=== PATIENT | female | born 1980 | race Caucasian/White ===

== ENCOUNTER 2016-06-06 21:06 | Observation (INO) | payer MEDICAID, OTHER ==
[2016-06-06] MEDS ORDERED: NS 1,000 ML IV ONE (21:48)
[2016-06-06 21:58] LABS: % IMMATURE GRANULYOCYTES 0.2 % (0.0-1.1); ABSOLUTE IMMATURE GRANULOCYTES 0.02 10^3/uL (0.00-0.10); ADD DIFF? NO; ADD MORPH? NO; ADD SCAN? NO; ATYPICAL LYMPHOCYTE FLAG 20 (0-99); FRAGMENT RBC FLAG 0 (0-99); HEMATOCRIT 42.9 % (38.0-47.0); HEMOGLOBIN 14.7 g/dL (12.6-16.3); LEFT SHIFT FLG 0 (0-99); LIPEMIA HEMOLYSIS FLAG 90 (0-99); MEAN CELL HEMOGLOBIN 31.3 pg (27.9-34.1); MEAN CELL HEMOGLOBIN CONCENTR. 34.3 g/dL (32.4-36.7); MEAN CELL VOLUME 91.5 fL (81.5-99.8); MEAN PLATELET VOLUME 9.5 fL (8.7-11.7); PLATELET CLUMPS FLAG 70 (0-99); PLATELET COUNT 292 10^3/uL (150-400); RED BLOOD CELL COUNT 4.69 10^6/uL (4.18-5.33); RED CELL DISTRIBUTION WIDTH 13.2 % (11.5-15.2)
[2016-06-06] MEDS ORDERED: ONDANSETRON 4 MG/2 ML VIAL IVP ONE (22:11)
--- NOTE | 2016-06-06 22:11 | EDPHY ---
General Narrative: CHIEF COMPLAINT: Abdominal pain, vomiting HISTORY OF PRESENT ILLNESS: Sudden onset of distension, pain and vomiting this morning. It is severe pain. It is worse with any kind of palpation or movement. Constipated for 4 days. No diarrhea. No trauma or injury. Remote history of cholecystectomy. She has been vomiting all day with bilious appearing vomitus. She has no chest pain or shortness of breath. Questionable fever. No headache. No dizziness or syncope. No vaginal bleeding or discharge. No pelvic pain. No flank pain. No urinary complaints. No other associated complaints or modifying factors. PREVIOUS ABDOMINAL SURGERIES/DIAGNOSES: Cholecystectomy NPO: All day REVIEW OF SYSTEMS: Ten systems reviewed and are negative unless otherwise noted in the HPI EXAMINATION: General Appearance: Alert, no distress, crying Head: normocephalic, atraumatic Eyes: Pupils equal and round, no conjunctival pallor or injection ENT, Mouth: Mucous membranes moist. Uvula midline. No erythema edema. Neck: Normal inspection, supple, non-tender Respiratory: Lungs are clear to auscultation. No wheezing, rhonchi or crackles. Cardiovascular: Regular rate and rhythm. No murmur. Gastrointestinal: Abdomen is soft. Tympanic in all quads. Decreased bowel sounds in all quadrants. Moderate tenderness to palpation. No guarding noted. No flank tenderness. No rigidity. Neurological: A&O, nonfocal Skin: Warm and dry, no rash Extremities: Nontender, no pedal edema Psychiatric: Mood and affect normal DIFFERENTIAL DIAGNOSES: Including but not limited to small-bowel obstruction, constipation, obstipation , enteritis, colitis, cystitis, renal colic, endometriosis MDM: 9:50 p.m. Acute abdominal pain with tympany and diminished bowel sounds in all quadrants. She is guarding on examination. She is obviously uncomfortable. I did order pain medication, nausea medication and IV fluids. Laboratory studies and CT scan are also pending. 10:50 p.m. Patient has small bowel movement improved. She still abdominal pain. There is no white count or fever. We are having difficulty obtaining a large enough caliber IV to obtain a CT scan. In the interim, her liver enzymes have returned with abnormalities of the AST, ALT and conjugated bilirubin. I have ordered ultrasound of the abdomen to evaluate the liver for LFT abnormality. Still pursuing CT scan of the abdomen and pelvis once IV access is obtained. 11:05 p.m. Contacted by radiologist Dr. Parsons. We discussed the case. He recommends that given the clinical scenario that we pursue with CT scan abdomen pelvis with contrast 1st to determine if there is any need for an ultrasound of the right upper quadrant given that she is status post cholecystectomy. 11:30 p.m. There has been extensive difficulty obtaining a large enough IV to inject through. We have elected to proceed with CT scan of the abdomen and pelvis without IV contrast if this final attempt is unsuccessful. 12:[address] scan of the abdomen and pelvis was discussed with Dr. Parsons. There is some rectosigmoid colitis with moderate constipation. Patient is still in a significant amount of pain despite IV pain medication. I feel that she is best served with admission to determine the etiology of this colitis as it does not appear to be infective by history and laboratory studies. She would benefit from admission for pain control as well as GI consult to discuss the possibility of colonoscopy. She is comfortable with this plan. I have discussed the case with the hospitalist, and she will admit the patient to [facility] for further care. I have also ordered a hepatitis panel to analyze the transaminitis. Dr. Nelson will follow up on the hepatitis panel and lactic acid. ED Precautions: Worsening pain. Fever. Bloody stools. Bloody emesis. Constipation or diarrhea. SUPERVISION: This patient was independently evaluated without direct examination by the attending physician. Case was discussed with attending physician. - History Smoking Status: Never smoked - Objective Vital Signs: Initial Vital Signs Temperature (C) 98.2 F 06/06/16 21:34 Heart Rate 85 06/06/16 21:34 Respiratory Rate 18 06/06/16 21:34 Blood Pressure 110/75 06/06/16 21:34 O2 Sat (%) 99 06/06/16 21:34 O2 Delivery Mode Room Air Allergies/Adverse Reactions: No Known Allergies Allergy (Unverified 06/06/16 21:33) Home Medications: Medication Instructions Recorded Ondansetron Odt [Zofran Odt 4 mg 4 mg PO Q4 PRN #20 tab 11/23/14 (RX)] Cymbalta 06/06/16 Zanaflex 06/06/16 traMADol 06/06/16 Laboratory Results: Laboratory Results 06/06/16 21:46 06/06/16 21:46 06/06/16 06/06/16 06/06/16 22:10 21:46 21:46 WBC RBC Hgb Hct MCV MCH MCHC RDW Plt Count MPV Neut % (Auto) Lymph % (Auto) [place] % (Auto) Eos % (Auto) Baso % (Auto) Nucleat RBC Rel Count Absolute Neuts (auto) Absolute Lymphs (auto) Absolute Monos (auto) Absolute Eos (auto) Absolute Basos (auto) Absolute Nucleated RBC Immature Gran % Immature Gran # PT 12.0 SEC SEC (12.0-15.0) INR 0.90 (0.83-1.16) APTT 28.7 SEC SEC (23.0-38.0) Sodium 137 mEq/L mEq/L (134-144) Potassium 4.3 mEq/L mEq/L (3.5-5.2) Chloride 103 mEq/L mEq/L (97-110) Carbon Dioxide 22 mEq/l mEq/l (22-31) Anion Gap 12 mEq/L mEq/L (8-16) BUN 13 mg/dL mg/dL (7-23) Creatinine 0.6 mg/dL mg/dL (0.6-1.0) Estimated GFR > 60 Glucose 115 mg/dL H mg/dL (70-100) Calcium 9.4 mg/dL mg/dL (8.5-10.4) Total Bilirubin 0.8 mg/dL mg/dL (0.1-1.4) Conjugated Bilirubin 0.6 mg/dL H mg/dL (0.0-0.5) Unconjugated Bilirubin 0.2 mg/dL mg/dL (0.0-1.1) AST 305 IU/L H IU/L (14-46) ALT 383 IU/L H IU/L (9-52) Alkaline Phosphatase 107 IU/L IU/L (38-126) Total Protein 7.5 g/dL g/dL (6.3-8.2) Albumin 4.4 g/dL g/dL (3.5-5.0) Lipase 23.0 IU/L IU/L (23-300) Beta HCG, Qual NEGATIVE 06/06/16 21:46 WBC 8.01 10^3/uL 10^3/uL (3.80-9.50) RBC 4.69 10^6/uL 10^6/uL (4.18-5.33) Hgb 14.7 g/dL g/dL (12.6-16.3) Hct 42.9 % % (38.0-47.0) MCV 91.5 fL fL (81.5-99.8) MCH 31.3 pg pg (27.9-34.1) MCHC 34.3 g/dL g/dL (32.4-36.7) RDW 13.2 % % (11.5-15.2) Plt Count 292 10^3/uL 10^3/uL (150-400) MPV 9.5 fL fL (8.7-11.7) Neut % (Auto) 82.5 % H % (39.3-74.2) Lymph % (Auto) 11.6 % L % (15.0-45.0) [place] % (Auto) 5.2 % % (4.5-13.0) Eos % (Auto) 0.1 % L % (0.6-7.6) Baso % (Auto) 0.4 % % (0.3-1.7) Nucleat RBC Rel Count 0.0 % % (0.0-0.2) Absolute Neuts (auto) 6.60 10^3/uL H 10^3/uL (1.70-6.50) Absolute Lymphs (auto) 0.93 10^3/uL L 10^3/uL (1.00-3.00) Absolute Monos (auto) 0.42 10^3/uL 10^3/uL (0.30-0.80) Absolute Eos (auto) 0.01 10^3/uL L 10^3/uL (0.03-0.40) Absolute Basos (auto) 0.03 10^3/uL 10^3/uL (0.02-0.10) Absolute Nucleated RBC 0.00 10^3/uL 10^3/uL (0-0.01) Immature Gran % 0.2 % % (0.0-1.1) Immature Gran # 0.02 10^3/uL 10^3/uL (0.00-0.10) PT INR APTT Sodium Potassium Chloride Carbon Dioxide Anion Gap BUN Creatinine Estimated GFR Glucose Calcium Total Bilirubin Conjugated Bilirubin Unconjugated Bilirubin AST ALT Alkaline Phosphatase Total Protein Albumin Lipase Beta HCG, Qual Medications Given: Discontinued Medications Sodium Chloride (Ns) 1,000 mls @ 0 mls/hr IV ONCE ONE PRN Reason: Wide Open Stop: 06/06/16 21:49 Last Admin: 06/06/16 22:22 Dose: 1,000 mls Morphine Sulfate (Morphine) 6 mg IVP EDNOW ONE Stop: 06/06/16 22:12 Last Admin: 06/06/16 22:22 Dose: 6 mg Ondansetron HCl (Zofran) 4 mg IVP EDNOW ONE Stop: 06/06/16 22:12 Last Admin: 06/06/16 22:22 Dose: Not Given Promethazine HCl (Phenergan Rectal) 25 mg MS EDNOW ONE Stop: 06/06/16 22:24 Last Admin: 06/06/16 22:24 Dose: 25 mg Departure - Departure Disposition: [facility] Acute Clinical Impression: Colitis, Acute abdominal pain Constipation Qualifiers: Constipation type: unspecified constipation type Qualified Code(s): K59.00 - Constipation, unspecified Condition: Good Referrals: MANDI WINSTON [Other] - As per Instructions
[2016-06-06] MEDS ORDERED: PROMETHAZINE HCL 25 MG SUPPR PR ONE ×2 (22:15→22:23)
[2016-06-06 22:20] LABS: ALBUMIN 4.4 g/dL (3.5-5.0); ALKALINE PHOSPHATASE 107 IU/L (38-126); ANION GAP 12 mEq/L (8-16); ASPARTATE AMINOTRANSFERASE 305 IU/L (14-46); CALCIUM 9.4 mg/dL (8.5-10.4); CARBON DIOXIDE 22 mEq/l (22-31); CHLORIDE 103 mEq/L (97-110); CREATININE 0.6 mg/dL (0.6-1.0); GLOMERULAR FILTRATION RATE > 60; GLUCOSE 115 mg/dL (70-100); POTASSIUM 4.3 mEq/L (3.5-5.2); SODIUM 137 mEq/L (134-144); TOTAL PROTEIN 7.5 g/dL (6.3-8.2)
[2016-06-06] MEDS ORDERED: IOPAMIDOL (ISOVUE-300) 100 ML BTL IV ONE (22:20)
[2016-06-06 22:21] LABS: ALANINE AMINOTRANSFERASE 383 IU/L (9-52); BILIRUBIN,TOTAL 0.8 mg/dL (0.1-1.4); BILIRUBIN-CONJUGATED 0.6 mg/dL (0.0-0.5); BILIRUBIN-UNCONJUGATED 0.2 mg/dL (0.0-1.1)
[2016-06-06 22:31] LABS: INR 0.9 (0.83-1.16)
[2016-06-06 22:32] LABS: APTT 28.7 SEC (23.0-38.0)
[2016-06-07] MEDS ORDERED: HYDROmorphONE/DILAUDID 1 MG/ML SYR ONE (00:04)
[2016-06-07] MEDS ORDERED: HYDROmorphONE/DILAUDID 1 MG/ML SYR IVP ONE (00:04)
[2016-06-07] MEDS ORDERED: MAGNESIUM HYDROXIDE 30 ML UDCUP PO PRN (01:22)
[2016-06-07] MEDS ORDERED: BISACODYL 10 MG SUPP PR PRN (01:22)
[2016-06-07] MEDS ORDERED: POLYETHYLENE GLYCOL 3350 17 GM PKT PO PRN (01:22)
[2016-06-07] MEDS ORDERED: NS 1,000 ML IV SCH (01:30)
--- NOTE | 2016-06-07 01:39 | PDGENHP ---
History and Physical - Chief Complaint abdominal pain - History of Present Illness Patient is a 36-year-old female with history of degenerative disc disease of her spine, with chronic pain syndrome presents to the ED with complaint of acute onset abdominal pain, nausea and vomiting. Patient states she woke up this morning feeling abdominal distention and bloating, associated with mild cramping abdominal pain. Throughout the course of the day her abdominal pain worsened and by a 2:00 p.m. she began having nausea and vomiting. Between 2:00 p.m. and 930 she vomited greater than 6 times, nonbilious nonbloody and her abdominal pain continued to intensify. She felt the need to have a bowel movement at 1 point during the evening, but was unable to pass any stool. She states her last full BM was about 4 days ago and was normal in color and consistency. Given the progressive worsening of her symptoms, she decided to come to the ED for further evaluation. Patient denies a history of chronic constipation. She reports some chills associated with vomiting, but denies any subjective fevers, coughing, chest pain , shortness of breath, headache, dizziness or dysuria. For her chronic pain, she takes tramadol, cymbalta and these meds have not changed recently. On arrival to the ED patient is afebrile hemodynamically stable, although and moderate to significant amount of abdominal pain. CT of the abdomen was obtained without IV contrast, due to difficult IV access, which revealed evidence of focal sigmoid colitis. Labs did not show significant white count, BMP was within normal limits, but LFT showed transaminitis. Symptoms were not able to be controlled in the ED, so she was admitted to the hospitalist service for further management. Of note while in the ED, she did have a small BM with some improvement in her abdominal pain. History Information - Allergies/Home Medication List Allergies/Adverse Reactions: No Known Allergies Allergy (Unverified 06/06/16 21:33) Home Medications: Cymbalta 06/06/16 [Last Taken Unknown] Zanaflex 06/06/16 [Last Taken Unknown] traMADol 06/06/16 [Last Taken Unknown] I have personally reviewed and updated: family history, medical history, social history, surgical history - Past Medical History Additional medical history: degenerative disc disease with chronic pain - Surgical History Reports: cholecystectomy - Family History Additional family history: M: HTN, RA. F: bipolar disorder - Social History Smoking Status: Never smoked Alcohol Use: Rarely Drug Use: None Additional social history: Patient works as a travelling nurse. Originally from [place], now lives in [place] alone. Review of Systems ROS: 10pt was reviewed & negative except for what was stated in HPI & below Physical Exam Temp Pulse Resp BP Pulse Ox 37.0 C 85 16 124/78 H 96 06/07/16 01:13 06/07/16 01:13 06/07/16 01:13 06/07/16 01:13 06/07/16 01:13 Constitutional: no apparent distress, appears nourished, uncomfortable Eyes: PERRL, anicteric sclera, EOMI Ears, Nose, Mouth, Throat: moist mucous membranes, hearing normal, ears appear normal, no oral mucosal ulcers Cardiovascular: regular rate and rhythym, no murmur, rub, or gallop, pulses symmetric bilaterally, No JVD, No edema Peripheral Pulses: 2+: dorsalis-pedis (R), dorsalis-pedis (L) Respiratory: no respiratory distress, no rales or rhonchi, clear to auscultation Gastrointestinal: no palpable masses, other (hypoactive bowel sounds, soft, tender to palpation in RLQ/RUQ), No rebound Genitourinary: no bladder fullness, no bladder tenderness Skin: warm, normal color, no rashes or abrasions, no fluctuance, no induration, No mottled Musculoskeletal: full muscle strength, no muscle tenderness, normal joint ROM, no joint effusions Neurologic: AAOx3, sensation intact bilaterally, CN II-XII Intact, No weakness, No numbness Psychiatric: interacting appropriately, not anxious, not encephalopathic, thought process linear Lab Data & Imaging Review 06/06/16 21:46 06/06/16 21:46 WBC 8.01 10^3/uL (3.80-9.50) 06/06/16 21:46 RBC 4.69 10^6/uL (4.18-5.33) 06/06/16 21:46 Hgb 14.7 g/dL (12.6-16.3) 06/06/16 21:46 Hct 42.9 % (38.0-47.0) 06/06/16 21:46 MCV 91.5 fL (81.5-99.8) 06/06/16 21:46 MCH 31.3 pg (27.9-34.1) 06/06/16 21:46 MCHC 34.3 g/dL (32.4-36.7) 06/06/16 21:46 RDW 13.2 % (11.5-15.2) 06/06/16 21:46 Plt Count 292 10^3/uL (150-400) 06/06/16 21:46 MPV 9.5 fL (8.7-11.7) 06/06/16 21:46 Neut % (Auto) 82.5 % (39.3-74.2) H 06/06/16 21:46 Lymph % (Auto) 11.6 % (15.0-45.0) L 06/06/16 21:46 [place] % (Auto) 5.2 % (4.5-13.0) 06/06/16 21:46 Eos % (Auto) 0.1 % (0.6-7.6) L 06/06/16 21:46 Baso % (Auto) 0.4 % (0.3-1.7) 06/06/16 21:46 Nucleat RBC Rel Count 0.0 % (0.0-0.2) 06/06/16 21:46 Absolute Neuts (auto) 6.60 10^3/uL (1.70-6.50) H 06/06/16 21:46 Absolute Lymphs (auto) 0.93 10^3/uL (1.00-3.00) L 06/06/16 21:46 Absolute Monos (auto) 0.42 10^3/uL (0.30-0.80) 06/06/16 21:46 Absolute Eos (auto) 0.01 10^3/uL (0.03-0.40) L 06/06/16 21:46 Absolute Basos (auto) 0.03 10^3/uL (0.02-0.10) 06/06/16 21:46 Absolute Nucleated RBC 0.00 10^3/uL (0-0.01) 06/06/16 21:46 Immature Gran % 0.2 % (0.0-1.1) 06/06/16 21:46 Immature Gran # 0.02 10^3/uL (0.00-0.10) 06/06/16 21:46 PT 12.0 SEC (12.0-15.0) 06/06/16 22:10 INR 0.90 (0.83-1.16) 06/06/16 22:10 APTT 28.7 SEC (23.0-38.0) 06/06/16 22:10 VBG Lactic Acid 0.9 mmol/L (0.7-2.1) 06/07/16 00:20 Sodium 137 mEq/L (134-144) 06/06/16 21:46 Potassium 4.3 mEq/L (3.5-5.2) 06/06/16 21:46 Chloride 103 mEq/L (97-110) 06/06/16 21:46 Carbon Dioxide 22 mEq/l (22-31) 06/06/16 21:46 Anion Gap 12 mEq/L (8-16) 06/06/16 21:46 BUN 13 mg/dL (7-23) 06/06/16 21:46 Creatinine 0.6 mg/dL (0.6-1.0) 06/06/16 21:46 Estimated GFR > 60 06/06/16 21:46 Glucose 115 mg/dL (70-100) H 06/06/16 21:46 Calcium 9.4 mg/dL (8.5-10.4) 06/06/16 21:46 Total Bilirubin 0.8 mg/dL (0.1-1.4) 06/06/16 21:46 Conjugated Bilirubin 0.6 mg/dL (0.0-0.5) H 06/06/16 21:46 Unconjugated Bilirubin 0.2 mg/dL (0.0-1.1) 06/06/16 21:46 AST 305 IU/L (14-46) H 06/06/16 21:46 ALT 383 IU/L (9-52) H 06/06/16 21:46 Alkaline Phosphatase 107 IU/L (38-126) 06/06/16 21:46 Total Protein 7.5 g/dL (6.3-8.2) 06/06/16 21:46 Albumin 4.4 g/dL (3.5-5.0) 06/06/16 21:46 Lipase 23.0 IU/L (23-300) 06/06/16 21:46 Beta HCG, Qual NEGATIVE 06/06/16 21:46 Visualized and Interpreted imaging results: Yes Interpretation: CT abd/pelvis: proximal and distal sigmoid colitis with moderate constipation Assessment & Plan Assessment: Patient is a 36/F with history of osteoarthritis of the spine with chronic pain who presents to the ED with four days of constipation and acute onset abdominal pain nausea and vomiting today. Plan: # acute abdominal pain CT shows 2 separate foci of colitis of sigmoid colon, as well as moderate constipation. Given lack of fever, leukocytosis, I do not suspect an infectious etiology requiring antibiotics at this time. CT also does not show evidence of appendicitis (although suboptimal given lack of contrast) or air tester pathology, so these etiologies of pain are less likely. B-HCG is neg. Colitis may be related to moderate constipation vs undiagnosed inflammatory bowel disease. Will treat constipation with aggressive bowel regimen, check ESR/CRP and cont pain management. Will consider GI consult if symptoms do not improve. # transaminitis Etiology is unclear at this time, could be related to her duloxetine vs infectious. 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 Will check acute hepatitis panel and trend. Although CT shows normal liver, will consider US RUQ to further evaluate biliary tree if LFTs cont to increase. # constipation Last BM was 4 days ago. Will initiate senna/colace and provide bisacodyl supp, miralax prn. # chronic pain, degenerative disc disease Stable, no red flag symptoms. Will hold cymbalta and cont other pain meds. # dispo: admit under observation status # gen: clear liquid diet DVT ppx: low risk Full code
[2016-06-07] MEDS: HYDROmorphONE/DILAUDID 1 MG/ML SYR IVP PRN ×3 (01:48→11:15)
[2016-06-07] MEDS: ONDANSETRON 4 MG/2 ML VIAL IVP PRN ×2 (01:48→06:20)
[2016-06-07 02:25] LABS: COLOR YELLOW; LEUKOCYTE ESTERASE,URINE NEGATIVE (NEGATIVE); NITRITE,URINE NEGATIVE (NEGATIVE)
[2016-06-07 05:52] LABS: % IMMATURE GRANULYOCYTES 0.4 % (0.0-1.1); ABSOLUTE IMMATURE GRANULOCYTES 0.02 10^3/uL (0.00-0.10); ADD DIFF? NO; ADD MORPH? NO; ADD SCAN? NO; ATYPICAL LYMPHOCYTE FLAG 20 (0-99); FRAGMENT RBC FLAG 0 (0-99); HEMATOCRIT 34.2 % (38.0-47.0); HEMOGLOBIN 11.4 g/dL (12.6-16.3); LEFT SHIFT FLG 0 (0-99); LIPEMIA HEMOLYSIS FLAG 80 (0-99); MEAN CELL HEMOGLOBIN 31.5 pg (27.9-34.1); MEAN CELL HEMOGLOBIN CONCENTR. 33.3 g/dL (32.4-36.7); MEAN CELL VOLUME 94.5 fL (81.5-99.8); MEAN PLATELET VOLUME 9.6 fL (8.7-11.7); PLATELET CLUMPS FLAG 0 (0-99); PLATELET COUNT 209 10^3/uL (150-400); RED BLOOD CELL COUNT 3.62 10^6/uL (4.18-5.33); RED CELL DISTRIBUTION WIDTH 13.3 % (11.5-15.2)
[2016-06-07 06:17] LABS: ALANINE AMINOTRANSFERASE 256 IU/L (9-52); ALBUMIN 2.7 g/dL (3.5-5.0); ALKALINE PHOSPHATASE 63 IU/L (38-126); ANION GAP 3 mEq/L (8-16); ASPARTATE AMINOTRANSFERASE 172 IU/L (14-46); BILIRUBIN,TOTAL 0.5 mg/dL (0.1-1.4); C-REACTIVE PROTEIN 18.7 mg/L (<10.0); CALCIUM 7.5 mg/dL (8.5-10.4); CARBON DIOXIDE 24 mEq/l (22-31); CHLORIDE 110 mEq/L (97-110); CREATININE 0.5 mg/dL (0.6-1.0); GLOMERULAR FILTRATION RATE > 60; GLUCOSE 88 mg/dL (70-100); POTASSIUM 4.1 mEq/L (3.5-5.2); SODIUM 137 mEq/L (134-144); TOTAL PROTEIN 4.9 g/dL (6.3-8.2)
[2016-06-07 06:45] LABS: SEDIMENTATION RATE 9 MM/HR (0-20)
[2016-06-07 07:32] LABS: % IMMATURE GRANULYOCYTES 0.4 % (0.0-1.1); ABSOLUTE IMMATURE GRANULOCYTES 0.02 10^3/uL (0.00-0.10); ADD DIFF? NO; ADD MORPH? NO; ADD SCAN? NO; ATYPICAL LYMPHOCYTE FLAG 10 (0-99); FRAGMENT RBC FLAG 0 (0-99); HEMATOCRIT 34.8 % (38.0-47.0); HEMOGLOBIN 11.9 g/dL (12.6-16.3); LEFT SHIFT FLG 0 (0-99); LIPEMIA HEMOLYSIS FLAG 90 (0-99); MEAN CELL HEMOGLOBIN 32.2 pg (27.9-34.1); MEAN CELL HEMOGLOBIN CONCENTR. 34.2 g/dL (32.4-36.7); MEAN CELL VOLUME 94.3 fL (81.5-99.8); MEAN PLATELET VOLUME 9.8 fL (8.7-11.7); PLATELET CLUMPS FLAG 0 (0-99); PLATELET COUNT 193 10^3/uL (150-400); RED BLOOD CELL COUNT 3.69 10^6/uL (4.18-5.33); RED CELL DISTRIBUTION WIDTH 13.4 % (11.5-15.2)
[2016-06-07 07:45] VITALS: BP 116/78; PULSE 95; RESP 18; TEMP 98.5; O2SAT 95
[2016-06-07 07:58] LABS: ALANINE AMINOTRANSFERASE 261 IU/L (9-52); ALKALINE PHOSPHATASE 61 IU/L (38-126); ASPARTATE AMINOTRANSFERASE 172 IU/L (14-46); BILIRUBIN,TOTAL 0.6 mg/dL (0.1-1.4); BILIRUBIN-CONJUGATED 0.3 mg/dL (0.0-0.5); BILIRUBIN-UNCONJUGATED 0.3 mg/dL (0.0-1.1); CALCIUM 7.8 mg/dL (8.5-10.4); CARBON DIOXIDE 25 mEq/l (22-31); CHLORIDE 106 mEq/L (97-110); CREATININE 0.5 mg/dL (0.6-1.0); GLOMERULAR FILTRATION RATE > 60; GLUCOSE 111 mg/dL (70-100); SODIUM 137 mEq/L (134-144); TOTAL PROTEIN 5.2 g/dL (6.3-8.2)
[2016-06-07 08:01] LABS: ANION GAP 6 mEq/L (8-16)
[2016-06-07] MEDS ORDERED: SENNOSIDES/DOCUSATE SODIUM TAB PO SCH (09:00)
[2016-06-07] MEDS ORDERED: MAGNESIUM CITRATE 300 ML BOTTLE PO PRN (09:34)
--- NOTE | 2016-06-07 09:37 | HOSPPROG ---
Hospitalist Progress Note Assessment/Plan: #Acute abd pain: suspect constipation. No e/o infection; afebrile, no leukocytosis. Hx not consistent with IBD. Aggressive bowel regimen. Further eval with U/S #Transaminitis: may be 2/2 above vs. Zanaflex, Duloxetine. Holding both. Decreased Tramadol dose to q12 #Normocytic anemia: no active bleeding Objective: Vital Signs Temp Pulse Resp BP Pulse Ox 36.9 C 95 18 116/78 95 06/07/16 07:43 06/07/16 07:43 06/07/16 07:43 06/07/16 07:43 06/07/16 07:43 Laboratory Results 06/07/16 07:25 06/07/16 07:25 06/06/16 06/07/16 06/08/16 05:59 05:59 05:59 Intake Total 3768 Balance 3768 PT 12.0 SEC (12.0-15.0) 06/06/16 22:10 INR 0.90 (0.83-1.16) 06/06/16 22:10 - Physical Exam Constitutional: no apparent distress Eyes: PERRL Ears, Nose, Mouth, Throat: moist mucous membranes, hearing normal Cardiovascular: regular rate and rhythym, no murmur, rub, or gallop, edema ( mild edema of hands/feet) Respiratory: no respiratory distress, no rales or rhonchi Gastrointestinal: normoactive bowel sounds, tenderness (RUQ, +BS) Musculoskeletal: full muscle strength, no muscle tenderness Neurologic: AAOx3 ICD10 Worksheet Patient Problems: Problems Problem Status Onset Acute abdominal pain Acute Colitis Acute Constipation Acute
[2016-06-07] MEDS ORDERED: BISACODYL 10 MG SUPP PR ONE (14:06)
[2016-06-07] MEDS ORDERED: traMADol 50 MG TAB PO PRN ×2 (14:07→14:08)
--- NOTE | 2016-06-07 17:25 | GDS ---
[f rep st] DISCHARGE SUMMARY DISCHARGE DIAGNOSES: 1. Constipation. 2. Acute abdominal pain. 3. Acute hepatitis. 4. Normocytic anemia. HISTORY OF PRESENT ILLNESS: The patient is a 36-year-old female with chronic back pain secondary to degenerative disk disease and chronic pain syndrome, presenting to the emergency room with acute onset abdominal pain, nausea, and vomiting. She woke up the morning of admission feeling abdominal distention and bloating. The pain was mild and cramping in sensation. By 2 p.m., she began having nausea and vomiting, which was nonbilious and nonbloody. She felt that she needed to have a bowel movement but was unable to pass any stool. Last full BM was 4 days ago, normal color and consistency, no blood. Denies any joint pain or swelling. She denies any fevers, chills, or sweats. No myalgias. No shortness of breath. For her chronic pain, she takes tramadol, Cymbalta, and Zanaflex. HOSPITAL COURSE: 1. Acute abdominal pain, suspected to constipation: CT demonstrated moderate stool throughout the colon and some distal rectosigmoid inflammation, which is nonspecific colitis. There was no evidence of appendicitis. CRP mildly elevated , but negative ESR, thus low suspicion for IBD aubrey since no bloody stools, joint swelling, etc. Ultrasound of the abdomen did not show any biliary dilatation or sludge. Pain is much improved after BM today. The patient is chronically on tramadol. Recommended senna daily with plenty of fluids. 2. Transaminitis: LFTs elevated in 300s. Could possibly be secondary to Zanaflex, duloxetine. Denies recent APAP and minimal Etoh. No symptoms suggestive of viral process like EBV/CMV. I advised the patient to hold both of these medications and decreased her dose of tramadol to 50 mg q.12. Repeat LFTs 06/10/16. US showed hepatic steatosis; TAMMI and anti-smooth muscle antibody pending. She will FU with PCP, Dr. Santana at [facility]. 3. Normocytic anemia. No evidence of bleeding. DISPOSITION: Patient is stable for discharge. At time of discharge, she is tolerating p.o. and had a bowel movement. MEDICATIONS: Hold duloxetine and Zanaflex. Decrease dose of tramadol with hepatotoxicity. Repeat CMP on Saturday, June 2st, which I will follow. FOLLOWUP: With PCP, Dr. Santana, at [facility]. PENDING LABS: TAMMI and anti-smooth muscle antibody. /[id number]/MODL MTDD
== END 2016-06-07 16:59 | disposition home or self-care (01) ==
LOC: F1N 06-07 00:41
PROVIDERS: ADMIT Internal Medicine; ATTEND Internal Medicine
DX: K59.00 Constipation, unspecified (principal); K52.9 Noninfective gastroenteritis and colitis, unspecified; B17.9 Acute viral hepatitis, unspecified; D64.9 Anemia, unspecified; M53.80 Other specified dorsopathies, site unspecified
CPT/HCPCS: 74177; 76705; 96361; 96374; 96375; 99285; G0378; G0472; J1170; J2405; Q9967

== ENCOUNTER 2016-06-27 11:45 | Observation (INO) | payer MEDICAID ==
--- NOTE | 2016-06-27 11:57 | EDPHY ---
HPI/HX/ROS/PE/MDM Narrative: CHIEF COMPLAINT: Nausea, vomiting, diarrhea. HPI: The patient is a 36-year-old female with history of chronic pain who presents with vomiting and diarrhea. The patient was admitted 06/06/16 for sigmoid colitis and transaminitis. Last night around 9pm she developed abdominal cramping. She went to have a bowel movement and began vomiting. She has since had 7 episodes of emesis and 12 episodes of diarrhea. Today she noticed blood in her stool. She denies hematemesis. The patient has lower abdominal pain and notes a low-grade fever. She works as a nurse at an assisted living facility and states no other contacts have similar GI symptoms. REVIEW OF SYSTEMS: Aside from elements discussed in the HPI, a comprehensive 10-point review of systems was reviewed and is negative. PMH: Chronic pain, Degenerative disc disorder PSH: Cholecystectomy 2009. SOCIAL HISTORY: Nurse in [employer]. PHYSICAL EXAM: General: Patient is alert, in no acute distress. ENT: Eyes are normal to inspection. ENT inspection normal. Neck: Normal inspection. Full range of motion. Respiratory: No respiratory distress. Breath sounds normal bilaterally. Cardiovascular: Regular rate and rhythm. Strong peripheral pulses. Abdomen: Moderate tenderness to bilateral lower quadrants. Back: Normal to inspection. No tenderness to palpation. Skin: Normal color. No rash. Warm and dry. Extremities: Normal appearance. Full range of motion. Neuro: Oriented x3. Normal motor function. Normal sensory function. ED Course: The patient was admitted 06/06/16 for sigmoid colitis and transaminitis. She presents today with nausea, vomiting, and diarrhea. The patient has had multiple episodes of vomiting and diarrhea. She states she had 1 episode of bloody diarrhea, no hematemesis. The patient's last admission she had elevated AST and DOROTHEA. Plan to check LFTs, BMP, urine preg, and Lipase. I ordered GI panel in case patient is able to provide a stool sample. Patient is requesting pain medication. IV was established, patient received 1L normal saline and 30mg Toradol. AST and DOROTHEA have normalized. I ordered CT abdomen/pelvis. 1:20 p.m.: An CT of the abdomen/pelvis was obtained. Results were called to me by the radiologist. Worsening colitis compared to last admission. See the full radiology report in the imaging section. 1:30 p.m.: I spoke to the hospitalist, Dr. Hsu will admit the patient. MDM: This patient presents with recurrent severe abdominal pain, hematochezia, and vomiting. Her LFTs seem to have normalized. On repeat CT, colitis seems to have significantly worsened vs prior study only a few weeks ago. I think the patient would benefit from urgent colonoscopy. I discussed options with the patient, including hospital admission vs. outpatient, and she feels to ill to go home. I see no evidence of severe blood loss, sepsis, bowel obstruction or perforation. - Data Points Imaging Results: Imaging Impressions Abdomen CT 06/27/16 12:38 Impression: 1. Progression of circumferential contiguous colitis now involving the mid transverse colon through the splenic flexure, descending colon and rectosigmoid colon. 2. Prior cholecystectomy without biliary ductal dilation. 3. No appendicitis. 4. No drainable abscess, pneumoperitoneum, or bowel obstruction. 5. Recommend GI consult for colonoscopy. Findings and recommendations discussed with Emergency Department physician, Michael Nance MD, at 1320 hour, 06/27/2016. Final report concurs with initial preliminary interpretation. Laboratory Results: Laboratory Results 06/27/16 11:55 06/27/16 11:55 06/27/16 06/27/16 06/27/16 11:55 11:55 11:55 WBC RBC Hgb Hct MCV MCH MCHC RDW Plt Count MPV Neut % (Auto) Lymph % (Auto) [place] % (Auto) Eos % (Auto) Baso % (Auto) Nucleat RBC Rel Count Absolute Neuts (auto) Absolute Lymphs (auto) Absolute Monos (auto) Absolute Eos (auto) Absolute Basos (auto) Absolute Nucleated RBC Immature Gran % Immature Gran # PT 12.0 SEC SEC (12.0-15.0) INR 0.90 (0.83-1.16) APTT 26.4 SEC SEC (23.0-38.0) Sodium 141 mEq/L mEq/L (134-144) Potassium 4.0 mEq/L mEq/L (3.5-5.2) Chloride 102 mEq/L mEq/L (97-110) Carbon Dioxide 27 mEq/l mEq/l (22-31) Anion Gap 12 mEq/L mEq/L (8-16) BUN 13 mg/dL mg/dL (7-23) Creatinine 0.6 mg/dL mg/dL (0.6-1.0) Estimated GFR > 60 Glucose 142 mg/dL H mg/dL (70-100) Calcium 9.4 mg/dL mg/dL (8.5-10.4) Total Bilirubin 0.4 mg/dL mg/dL (0.1-1.4) Conjugated Bilirubin 0.4 mg/dL mg/dL (0.0-0.5) Unconjugated Bilirubin 0.0 mg/dL mg/dL (0.0-1.1) AST 52 IU/L H IU/L (14-46) ALT 99 IU/L H IU/L (9-52) Alkaline Phosphatase 109 IU/L IU/L (38-126) Total Protein 7.0 g/dL g/dL (6.3-8.2) Albumin 4.4 g/dL g/dL (3.5-5.0) Lipase 32.0 IU/L IU/L (23-300) Beta HCG, Qual NEGATIVE 06/27/16 11:55 WBC 11.37 10^3/uL H 10^3/uL (3.80-9.50) RBC 4.59 10^6/uL 10^6/uL (4.18-5.33) Hgb 14.6 g/dL g/dL (12.6-16.3) Hct 42.1 % % (38.0-47.0) MCV 91.7 fL fL (81.5-99.8) MCH 31.8 pg pg (27.9-34.1) MCHC 34.7 g/dL g/dL (32.4-36.7) RDW 12.9 % % (11.5-15.2) Plt Count 287 10^3/uL 10^3/uL (150-400) MPV 9.5 fL fL (8.7-11.7) Neut % (Auto) 81.4 % H % (39.3-74.2) Lymph % (Auto) 9.5 % L % (15.0-45.0) [place] % (Auto) 8.3 % % (4.5-13.0) Eos % (Auto) 0.0 % L % (0.6-7.6) Baso % (Auto) 0.4 % % (0.3-1.7) Nucleat RBC Rel Count 0.0 % % (0.0-0.2) Absolute Neuts (auto) 9.26 10^3/uL H 10^3/uL (1.70-6.50) Absolute Lymphs (auto) 1.08 10^3/uL 10^3/uL (1.00-3.00) Absolute Monos (auto) 0.94 10^3/uL H 10^3/uL (0.30-0.80) Absolute Eos (auto) 0.00 10^3/uL L 10^3/uL (0.03-0.40) Absolute Basos (auto) 0.04 10^3/uL 10^3/uL (0.02-0.10) Absolute Nucleated RBC 0.00 10^3/uL 10^3/uL (0-0.01) Immature Gran % 0.4 % % (0.0-1.1) Immature Gran # 0.05 10^3/uL 10^3/uL (0.00-0.10) PT INR APTT Sodium Potassium Chloride Carbon Dioxide Anion Gap BUN Creatinine Estimated GFR Glucose Calcium Total Bilirubin Conjugated Bilirubin Unconjugated Bilirubin AST ALT Alkaline Phosphatase Total Protein Albumin Lipase Beta HCG, Qual Medications Given: Discontinued Medications Sodium Chloride (Ns) 1,000 mls @ 0 mls/hr IV ONCE ONE PRN Reason: Wide Open Stop: 06/27/16 12:13 Last Admin: 06/27/16 12:16 Dose: 1,000 mls Ketorolac Tromethamine (Toradol) 30 mg IVP EDNOW ONE Stop: 06/27/16 12:21 Last Admin: 06/27/16 12:32 Dose: 30 mg General Initial Vital Signs: Initial Vital Signs Temperature (C) 36.7 C 06/27/16 11:57 Heart Rate 78 06/27/16 11:57 Respiratory Rate 18 06/27/16 11:57 Blood Pressure 139/95 H 06/27/16 11:57 O2 Sat (%) 98 06/27/16 11:57 O2 Delivery Mode Room Air Allergies/Adverse Reactions: No Known Allergies Allergy (Verified 06/27/16 11:56) Home Medications: Medication Instructions Recorded Cymbalta 06/27/16 Zanaflex 06/27/16 traMADol 06/27/16 Departure - Departure Disposition: [facility] Clinical Impression: Colitis, Hematochezia Condition: Fair Report Scribed for: Michael Nance Report Scribed by: Erna Correia Date of Report: 06/27/16 Time of Report: 12:15 Physician Review and Approval Statement: Portions of this note were transcribed by a biomedical equipment tech. I personally performed the history, physical exam, and medical decision-making; and confirmed the accuracy of the information in the transcribed note.
[2016-06-27 12:07] LABS: % IMMATURE GRANULYOCYTES 0.4 % (0.0-1.1); ABSOLUTE IMMATURE GRANULOCYTES 0.05 10^3/uL (0.00-0.10); ADD DIFF? NO; ADD MORPH? NO; ADD SCAN? NO; ATYPICAL LYMPHOCYTE FLAG 10 (0-99); FRAGMENT RBC FLAG 0 (0-99); HEMATOCRIT 42.1 % (38.0-47.0); HEMOGLOBIN 14.6 g/dL (12.6-16.3); LEFT SHIFT FLG 10 (0-99); LIPEMIA HEMOLYSIS FLAG 90 (0-99); MEAN CELL HEMOGLOBIN 31.8 pg (27.9-34.1); MEAN CELL HEMOGLOBIN CONCENTR. 34.7 g/dL (32.4-36.7); MEAN CELL VOLUME 91.7 fL (81.5-99.8); MEAN PLATELET VOLUME 9.5 fL (8.7-11.7); PLATELET CLUMPS FLAG 0 (0-99); PLATELET COUNT 287 10^3/uL (150-400); RED BLOOD CELL COUNT 4.59 10^6/uL (4.18-5.33); RED CELL DISTRIBUTION WIDTH 12.9 % (11.5-15.2)
[2016-06-27] MEDS ORDERED: NS 1,000 ML IV ONE (12:12)
[2016-06-27 12:17] LABS: INR 0.9 (0.83-1.16)
[2016-06-27 12:18] LABS: APTT 26.4 SEC (23.0-38.0)
[2016-06-27] MEDS ORDERED: KETOROLAC 30 MG/1 ML SDV IVP ONE (12:20)
[2016-06-27 12:26] LABS: ALANINE AMINOTRANSFERASE 99 IU/L (9-52); ALBUMIN 4.4 g/dL (3.5-5.0); ALKALINE PHOSPHATASE 109 IU/L (38-126); ANION GAP 12 mEq/L (8-16); ASPARTATE AMINOTRANSFERASE 52 IU/L (14-46); BILIRUBIN,TOTAL 0.4 mg/dL (0.1-1.4); BILIRUBIN-CONJUGATED 0.4 mg/dL (0.0-0.5); CALCIUM 9.4 mg/dL (8.5-10.4); CARBON DIOXIDE 27 mEq/l (22-31); CHLORIDE 102 mEq/L (97-110); CREATININE 0.6 mg/dL (0.6-1.0); GLOMERULAR FILTRATION RATE > 60; GLUCOSE 142 mg/dL (70-100); SODIUM 141 mEq/L (134-144)
[2016-06-27] MEDS ORDERED: IOPAMIDOL (ISOVUE-300) 100 ML BTL IV ONE (12:55)
[2016-06-27] MEDS ORDERED: ONDANSETRON DISINTEGRATING 4 MG TAB PO PRN (13:52)
[2016-06-27] MEDS ORDERED: ACETAMINOPHEN 325 MG TAB PO PRN (13:52)
[2016-06-27] MEDS ORDERED: TEMAZEPAM 15 MG CAP PO PRN (13:52)
[2016-06-27] MEDS ORDERED: NS 1,000 ML IV SCH (14:00)
[2016-06-27] MEDS: ONDANSETRON 4 MG/2 ML VIAL IVP PRN ×2 (15:08→19:37)
[2016-06-27] MEDS: oxyCODONE IR 5 MG TAB PO PRN ×2 (15:08→19:37)
[2016-06-27] MEDS ORDERED: GOLYTELY 4000 ML BTL PO ONE ×2 (15:32→20:00)
--- NOTE | 2016-06-27 16:14 | GHP ---
[f rep st] HISTORY AND PHYSICAL DATE OF ADMISSION: 06/27/2016 CHIEF COMPLAINT: Abdominal pain. HISTORY OF PRESENT ILLNESS: This is a 36-year-old female who was recently admitted for similar symp toms. She presents today with 1 day of multiple episodes of emesis, nonbloody, as well as diarrhea, which has had some blood in it. She also has some diffuse abdominal pain, which she describes as s omewhat stabbing, mostly located in her epigastric area. She was admitted with similar symptoms abo nm 3 weeks ago, though, at that point, she had more constipation as opposed to diarrhea. At that po int, a CT scan showed some focal areas of colitis. She also had elevated LFTs. CT scan today in th e emergency department shows more progressive colitis. She is thus admitted for further workup. 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 She has no histor y of inflammatory bowel disease or other cardiac arrhythmias. PAST MEDICAL/SURGICAL HISTORY: Chronic pain. MEDICATIONS: Tramadol, Cymbalta, and Zanaflex. ALLERGIES: None. FAMILY HISTORY: No known inflammatory bowel disease. SOCIAL HISTORY: She occasionally drinks alcohol. She does not smoke. She works as a nurse. REVIEW OF SYSTEMS: 10-point review of systems is conducted and is negative except per HPI. PHYSICAL EXAM: VITAL SIGNS: Blood pressure 114/79, heart rate 90, respiratory rate 16, saturating at 94% on room air. Temperature is 37.1. GENERAL: The patient is a pleasant female who is quite s omnolent. Appears somewhat uncomfortable, in moderate distress. HEENT: Normocephalic, atraumatic. CARDIOVASCULAR: Regular rate and rhythm. No murmurs, rubs, or gallops. PULMONARY: Lungs clear to auscultation bilaterally. ABDOMEN: Soft. She is moderately diffusely tender to palpation. I a ppreciate no hepatosplenomegaly. SKIN: No rash. : No Jesus. NEUROLOGIC: Shows her to be aler t and oriented x3. She is moving all extremities. PSYCHIATRIC: Exam shows normal mood and affect. LABS: White count is 11.3. INR is 0.9. AST is 52, ALT is 99. DATA: Abdominal CT shows colitis. I discussed this with Dr. Nance. Will plan to admit to med/surg. I discussed this with Dr. Snyder. Will plan colonoscopy tomorrow. IMPRESSION AND PLAN: 1. A 36-year-old female with somewhat progressive colitis: Agree with GI pathogen panel, which has been ordered to rule out infectious causes. I discussed this with Dr. Snyder. Will plan colonosco py tomorrow. Will prep her overnight. Etiologies include ischemic versus inflammatory (most likely ulcerative colitis) versus infectious. She is currently hemodynamically stable. 2. Elevated LFTs: She had hepatosteatosis on previous ultrasound. Unsure what exactly to make of this. Hepatitis serologies were negative. 3. Chronic pain: We will continue her home medications as well as provide her with additional pain control given her acute event. /[id number]/MODL
[2016-06-27] MEDS: HYDROmorphONE/DILAUDID 1 MG/ML SYR IVP PRN ×2 (17:20→21:50)
[2016-06-27] MEDS: METOCLOPRAMIDE 10 MG/2 ML VIAL IVP PRN ×2 (17:20→23:01)
[2016-06-28] MEDS: PROMETHAZINE HCL 25 MG TAB PO PRN ×2 (00:31→06:13)
[2016-06-28] MEDS: HYDROmorphONE/DILAUDID 1 MG/ML SYR IVP PRN ×2 (01:50→06:13)
[2016-06-28 04:58] LABS: % IMMATURE GRANULYOCYTES 0.4 % (0.0-1.1); ABSOLUTE IMMATURE GRANULOCYTES 0.03 10^3/uL (0.00-0.10); ADD DIFF? NO; ADD MORPH? NO; ADD SCAN? NO; ATYPICAL LYMPHOCYTE FLAG 20 (0-99); FRAGMENT RBC FLAG 0 (0-99); HEMATOCRIT 34.4 % (38.0-47.0); HEMOGLOBIN 11.6 g/dL (12.6-16.3); LEFT SHIFT FLG 10 (0-99); LIPEMIA HEMOLYSIS FLAG 80 (0-99); MEAN CELL HEMOGLOBIN 31.9 pg (27.9-34.1); MEAN CELL HEMOGLOBIN CONCENTR. 33.7 g/dL (32.4-36.7); MEAN CELL VOLUME 94.5 fL (81.5-99.8); MEAN PLATELET VOLUME 9.6 fL (8.7-11.7); PLATELET CLUMPS FLAG 0 (0-99); PLATELET COUNT 203 10^3/uL (150-400); RED BLOOD CELL COUNT 3.64 10^6/uL (4.18-5.33); RED CELL DISTRIBUTION WIDTH 13.1 % (11.5-15.2)
[2016-06-28] MEDS: oxyCODONE IR 5 MG TAB PO PRN ×3 (05:04→13:21)
[2016-06-28 05:13] LABS: ALANINE AMINOTRANSFERASE 67 IU/L (9-52); ALBUMIN 2.9 g/dL (3.5-5.0); ALKALINE PHOSPHATASE 58 IU/L (38-126); ANION GAP 4 mEq/L (8-16); ASPARTATE AMINOTRANSFERASE 27 IU/L (14-46); BILIRUBIN,TOTAL 0.6 mg/dL (0.1-1.4); CARBON DIOXIDE 27 mEq/l (22-31); CHLORIDE 106 mEq/L (97-110); CREATININE 0.5 mg/dL (0.6-1.0); GLOMERULAR FILTRATION RATE > 60; GLUCOSE 97 mg/dL (70-100); POTASSIUM 3.3 mEq/L (3.5-5.2); SODIUM 137 mEq/L (134-144); TOTAL PROTEIN 5.3 g/dL (6.3-8.2)
[2016-06-28] MEDS ORDERED: fentaNYL 100 MCG/2 ML INJ ONE (07:49)
[2016-06-28] MEDS ORDERED: MIDAZOLAM 2 MG/2 ML VIAL ONE ×2 (07:49→08:22)
[2016-06-28 08:04] VITALS: O2SAT 95
--- NOTE | 2016-06-28 08:46 | SOAPPROG ---
SOAP Progress Note Assessment/Plan: Assessment:Colonoscopy shows mild inflammation in descending colon, grossly more c/w infection than IBD. Stool specimen taken for GI pathogen panel and biopsies taken. Plan:For now Rx as infectious colitis with supportive care pending results of specimens. 06/28/16 08:45 Objective: Vital Signs Temp Pulse Resp BP Pulse Ox 36.7 C 83 14 113/69 95 06/28/16 08:00 06/28/16 08:00 06/28/16 08:00 06/28/16 08:00 06/28/16 08:00 Laboratory Results 06/28/16 04:26 06/28/16 04:26 06/27/16 06/28/16 06/29/16 05:59 05:59 05:59 Intake Total 2300 Balance 2300 PT 12.0 SEC (12.0-15.0) 06/27/16 11:55 INR 0.90 (0.83-1.16) 06/27/16 11:55 ICD10 Worksheet Patient Problems: Problems Problem Status Onset Colitis Acute Hematochezia Acute Acute abdominal pain Acute Colitis Acute Constipation Acute
[2016-06-28 09:20] VITALS: RESP 16
[2016-06-28] MEDS: ONDANSETRON 4 MG/2 ML VIAL IVP PRN (09:52)
[2016-06-28 10:45] VITALS: BP 122/86; PULSE 76; TEMP 98.7
--- NOTE | 2016-06-28 13:47 | GPN ---
[f rep st] PROCEDURE NOTE PROCEDURE PERFORMED: Colonoscopy with biopsy. INDICATION: This patient is a 36-year-old female admitted with diarrhea and abdominal pain. CT sca n suggested colitis. Stool cultures are negative. Colonoscopy is being performed to evaluate. PROCEDURE: After proper consent was obtained, patient was placed on left lateral decubitus position and received 8 mg intravenous Versed and 200 mcg intravenous fentanyl. Video colonoscope was introduced through the anus and rectum up the left colon across the transverse colon, down the right colon, to the cecum. FINDINGS: 1. A very minimal patchy colitis noted in the descending colon around the area of the splenic flexu re. This was biopsied. 2. The remainder of the colon, including the rectum, is normal. 3. Bowel prep is fair but I am able to lavage the bowel shepherd well enough to visualize. At this point, instrument was removed. Patient tolerated procedure well and was returned to recover y room in stable condition. RECOMMENDATIONS: Strongly suspect this patient has some kind of post-infectious colitis. Much less likely would be inflammatory bowel disease; however, will follow up on biopsies and recommend silvio donis. /[id number]/MODL
--- NOTE | 2016-06-28 14:12 | GDS ---
[f rep st] DISCHARGE SUMMARY DISCHARGE DIAGNOSES: 1. Abdominal pain with what is thought to be a post infectious colitis. 2. Transaminitis. 3. Chronic pain. CONSULTANTS: Dr. Micha Snyder, [facility]. HOSPITAL COURSE BY PROBLEM: Abdominal pain with colitis: The patient was placed on observation aft er she had a CT of the abdomen done that showed progressive circumferential contiguous colitis invol ving the mid transverse colon through the splenic flexure, descending colon, and rectosigmoid colon. A stool PCR panel was done that was negative for organisms. Dr. Snyder from GI was consulted, who performed a colonoscopy, who thought her mucosa were consistent with a post infectious colitis. On day of discharge, the patient is tolerating a diet and requests to be discharged. PHYSICAL EXAM: VITAL SIGNS: On day of discharge, blood pressure 122/86, pulse 76, respiratory rate 16, O2 saturation 95% on room air. ABDOMEN: Soft, nontender, nondistended. No guarding or reboun d tenderness. Normoactive bowel sounds. PERTINENT LABS AND STUDIES: Colonoscopy, done 06/28/2016, with biopsy by Dr. Snyder. DISCHARGE MEDICATIONS: Please refer to discharge medication reconciliation in [facility] for details. DISCHARGE INSTRUCTIONS: The patient will be discharged from the hospital where she should follow up with her primary care provider in the next week for routine hospital followup. She should also hav e further monitoring of her LFTs to ensure that they normalize. If they do not, it would be reasona ble to pursue further outpatient workup. She will need followup of her biopsy results from her colo noscopy. /[id number]/MODL
== END 2016-06-28 14:31 | disposition home or self-care (01) ==
LOC: EDUNIT# → F3E 14:45
PROVIDERS: ADMIT Student in an Organized Health Care Education/Training Program; ATTEND Family Medicine
PROC: 0DBM8ZX Excision of Descending Colon, Via Natural or Artificial Opening Endoscopic, Diagnostic (ICD-10-PCS; principal; 2016-06-27)
DX: K52.9 Noninfective gastroenteritis and colitis, unspecified (principal); R74.0 Nonspecific elevation of levels of transaminase and lactic acid dehydrogenase [LDH]; G89.29 Other chronic pain
CPT/HCPCS: 45380; 74177; 96361; 96374; 99285; G0378; J1170; J1885; J2250; J2405; J2765; J3010; Q9967

== ENCOUNTER → 2017-07-20 | Outpatient (CLI) | payer MEDICAID | LOC: FCPNEURO 21:00 | PROVIDERS: ATTEND Psychiatry & Neurology Sleep Medicine | DX: G47.33 Obstructive sleep apnea (adult) (pediatric) (principal); G47.31 Primary central sleep apnea ==

== ENCOUNTER 2017-11-01 21:08 | Emergency (ER) | payer MEDICAID ==
[2017-11-01] MEDS ORDERED: NS 1,000 ML IV ONE (21:23)
[2017-11-01] MEDS ORDERED: ONDANSETRON 4 MG/2 ML VIAL IVP ONE (21:23)
[2017-11-01] MEDS ORDERED: PROMETHAZINE HCL 25 MG/ML INJ ONE (21:32)
[2017-11-01] MEDS ORDERED: PROMETHAZINE HCL 25 MG/ML INJ IVP ONE (21:39)
[2017-11-01] MEDS ORDERED: FAMOTIDINE 20 MG/NACL 50 ML IV ONE (21:39)
--- NOTE | 2017-11-01 21:46 | EDPHY ---
H & P Time Seen by Provider: 11/01/17 21:33 HPI/ROS: HPI Nausea and vomiting. 37-year-old female by private vehicle with her friend. This patient reports that at approximately 7:00 p.m. She ate a hamburger at home. She reports that about 20 min after this she started developing nausea followed by crampy abdominal discomfort and vomiting. She has had multiple episodes of nonbilious , nonbloody vomiting and has been dry heaving since then. She has had a history of similar episodes to this in the past. She denies a previous diagnosis of cyclic vomiting syndrome. She describes having vague crampy abdominal discomfort intermittently. Denies diarrhea. No bloody or melenic stool. No other complaints. ROS: Constitutional: No fever, no chills. No weakness. Eyes: No discharge. No changes in vision. ENT: No sore throat. No nasal congestion or rhinorrhea. Respiratory: No cough. No shortness of breath. Cardiac: No chest pain, no palpitations. Gastrointestinal: As above. Genitourinary: No hematuria. No dysuria or increased frequency with urination. Musculoskeletal: No back pain. No neck pain. No myalgias or arthralgias. Skin: No rashes. Neurological: No headache. No focal weakness or altered sensation. Past medical history: Cholecystectomy, clavicle fracture, cervical and lumbar injuries, lupus, degenerative disc disease. Social history: Nonsmoker. Denies alcohol. Here with her friend Physical Exam: General Appearance: Alert, she appears uncomfortable, intermittently dry heaving. This patient is responding to questions appropriately and in full sentences. This patient appears well-hydrated and well-nourished. Eyes: Pupils equal and round no pallor or injection. No lid edema, erythema or injection. Respiratory: There are no retractions, lungs are clear to auscultation with good air movement bilaterally. Cardiovascular: Regular rate and rhythm. No murmur. Gastrointestinal: Abdomen is soft with mild and vague abdominal tenderness on palpation throughout, no masses, bowel sounds normal. No focal tenderness at McBurney's point. No Dasilva sign. Neurological: Motor sensory function is grossly intact. Cranial nerves are normal. Gait is normal. Skin: Warm and dry, no rashes. Musculoskeletal: Neck is supple and nontender. Extremities are symmetrical. All joints range without pain or impingement. Psychiatric: No agitation. No depression. Database: EKG: Imaging: Procedures: Emergency department course: Triage vital signs reviewed and are normal. An IV was placed. She was started on IV normal saline with 1-2 L to be given over the next 1-2 hours. She was initially given 20 mg of IV Pepcid, 4 mg of IV Zofran and 6.25 mg of IV Phenergan. The patient reports that she has had episodes similar to this in the past. Presentation is consistent with a cyclic vomiting syndrome. She has no focal or peritoneal findings on her abdominal exam. 10:00 p.m., the patient is still having nausea with dry heaving. She will be given 2.5 mg of IV Haldol and 0.5 mg of IV Ativan. 10:45 p.m., patient re-evaluated. She is sleeping at this time. She is easily arousable. She is feeling much better. She has been able to keep oral fluids down without issue. Repeat abdominal exam she is soft, nontender nondistended. I discussed the results of her blood work. She does have a mild elevation of her LFTs. She has had this in the past on review of her previous liver function tests. She feels comfortable going home now and I feel she is safe for discharge. I will have her follow up with her primary care physician on Saturday for re-evaluation and for repeat blood draw to have her LFTs checked next week. I will prescribe her Phenergan for nausea. She feels comfortable with this plan. Return to emergency department precautions have been reviewed with her. All of her questions were answered. She was discharged from the emergency department in good condition with her friend who is driving. Differential Diagnosis: The differential diagnosis on this patient includes but is not limited to cyclic vomiting syndrome, food-borne illness. Bowel obstruction, appendicitis, volvulus unlikely. This represents a partial list of diagnoses considered. These considerations are based on history, physical exam, past history, reassessment and diagnostic testing. Smoking Status: Never smoked Constitutional: Initial Vital Signs Temperature (C) 37.0 C 11/01/17 21:15 Heart Rate 95 11/01/17 21:15 Respiratory Rate 16 11/01/17 21:15 Blood Pressure 122/79 H 11/01/17 21:15 O2 Sat (%) 98 08/24/18 21:15 O2 Delivery Mode Room Air Allergies/Adverse Reactions: No Known Allergies Allergy (Verified 06/27/16 11:56) Home Medications: Medication Instructions Recorded Duloxetine HCl [Cymbalta] 40 mg PO DAILY 06/27/16 Tizanidine HCl [Zanaflex] 4 mg PO TID PRN 06/27/16 traMADol [Ultram 50 mg (*)] 50 mg PO Q4 PRN 06/27/16 Effexor Xr 11/01/17 Lamictal 11/01/17 Promethazine HCl [Phenergan 25mg 25 mg PO Q4-6PRN PRN #12 tab 11/01/17 (*)] Medical Decision Making - Data Points Laboratory Results: Laboratory Results 11/01/17 21:50 11/01/17 21:50 11/01/17 11/01/17 11/01/17 21:50 21:50 21:50 WBC 8.23 10^3/uL 10^3/uL (3.80-9.50) RBC 4.69 10^6/uL 10^6/uL (4.18-5.33) Hgb 14.7 g/dL g/dL (12.6-16.3) Hct 43.4 % % (38.0-47.0) MCV 92.5 fL fL (81.5-99.8) MCH 31.3 pg pg (27.9-34.1) MCHC 33.9 g/dL g/dL (32.4-36.7) RDW 13.5 % % (11.5-15.2) Plt Count 296 10^3/uL 10^3/uL (150-400) MPV 9.3 fL fL (8.7-11.7) Neut % (Auto) 69.8 % % (39.3-74.2) Lymph % (Auto) 22.2 % % (15.0-45.0) [place] % (Auto) 6.8 % % (4.5-13.0) Eos % (Auto) 0.5 % L % (0.6-7.6) Baso % (Auto) 0.5 % % (0.3-1.7) Nucleat RBC Rel Count 0.0 % % (0.0-0.2) Absolute Neuts (auto) 5.74 10^3/uL 10^3/uL (1.70-6.50) Absolute Lymphs (auto) 1.83 10^3/uL 10^3/uL (1.00-3.00) Absolute Monos (auto) 0.56 10^3/uL 10^3/uL (0.30-0.80) Absolute Eos (auto) 0.04 10^3/uL 10^3/uL (0.03-0.40) Absolute Basos (auto) 0.04 10^3/uL 10^3/uL (0.02-0.10) Absolute Nucleated RBC 0.00 10^3/uL 10^3/uL (0-0.01) Immature Gran % 0.2 % % (0.0-1.1) Immature Gran # 0.02 10^3/uL 10^3/uL (0.00-0.10) Sodium 138 mEq/L mEq/L (135-145) Potassium 4.2 mEq/L mEq/L (3.3-5.0) Chloride 106 mEq/L mEq/L (97-110) Carbon Dioxide 20 mEq/l L mEq/l (22-31) Anion Gap 12 mEq/L mEq/L (8-16) BUN 16 mg/dL mg/dL (7-23) Creatinine 0.6 mg/dL mg/dL (0.6-1.0) Estimated GFR > 60 Glucose 88 mg/dL mg/dL (70-100) Calcium 9.5 mg/dL mg/dL (8.5-10.4) Total Bilirubin 0.3 mg/dL mg/dL (0.1-1.4) Conjugated Bilirubin 0.2 mg/dL mg/dL (0.0-0.5) Unconjugated Bilirubin 0.1 mg/dL mg/dL (0.0-1.1) AST 70 IU/L H IU/L (14-46) ALT 106 IU/L H IU/L (9-52) Alkaline Phosphatase 107 IU/L IU/L (38-126) Total Protein 8.1 g/dL g/dL (6.3-8.2) Albumin 4.7 g/dL g/dL (3.5-5.0) Lipase 72 IU/L IU/L (23-300) Beta HCG, Qual NEGATIVE Medications Given: Discontinued Medications Haloperidol Lactate (Haldol Injection) 2.5 mg IVP EDNOW ONE Stop: 11/01/17 22:06 Last Admin: 11/01/17 22:07 Dose: 2.5 mg Haloperidol Lactate (Haldol Injection) 2.5 mg IVP EDNOW ONE Stop: 11/01/17 22:06 Last Admin: 11/01/17 22:14 Dose: Not Given Sodium Chloride (Ns) 1,000 mls @ 0 mls/hr IV ONCE ONE; Wide Open PRN Reason: Protocol Stop: 11/01/17 21:24 Last Admin: 11/01/17 21:51 Dose: 1,000 mls Famotidine/Sodium Chloride (Pepcid 20 Mg (Premix)) 50 mls @ 200 mls/hr IV EDNOW ONE Stop: 11/01/17 21:53 Last Admin: 11/01/17 21:49 Dose: 50 mls Lorazepam (Ativan Injection) 0.5 mg IVP EDNOW ONE Stop: 11/01/17 22:06 Last Admin: 11/01/17 22:07 Dose: 0.5 mg Lorazepam (Ativan Injection) 0.5 mg IVP EDNOW ONE Stop: 11/01/17 22:05 Last Admin: 11/01/17 22:14 Dose: Not Given Ondansetron HCl (Zofran) 4 mg IVP EDNOW ONE Stop: 11/01/17 21:24 Last Admin: 11/01/17 22:05 Dose: Not Given Promethazine HCl (Phenergan) 6.25 mg IVP EDNOW ONE Stop: 11/01/17 21:40 Last Admin: 11/01/17 21:48 Dose: 6.25 mg Departure - Departure Disposition: Home, Routine, Self-Care Clinical Impression: Vomiting, Transaminitis Condition: Good Instructions: Acute Nausea and Vomiting (ED) Additional Instructions: Read and follow provided instructions. Follow-up with your primary care physician on Saturday or Saturday of this coming week for re-evaluation as discussed. You need to have your liver function tests repeated next week as well. Take medication as prescribed for nausea. Keep well hydrated. A good fluid to drink is Gatorade mixed with water in a 1- 1 dilution over ice. Return to the emergency department for worsening symptoms, worsening abdominal pain, vomiting and inability to keep fluids down despite medications or other serious concerns. Referrals: NONE *PRIMARY CARE P,. [Primary Care Provider] - As per Instructions Prescriptions: Promethazine HCl [Phenergan 25mg (*)] 25 mg PO Q4-6PRN PRN #12 tab PRN Reason: For Nausea & Vomiting
[2017-11-01] MEDS ORDERED: HALOPERIDOL LACT 5 MG/ML INJ ONE (22:03)
[2017-11-01] MEDS ORDERED: LORazepam 2 MG/ML INJ IVP ONE ×2 (22:04→22:05)
[2017-11-01] MEDS ORDERED: LORazepam 2 MG/ML INJ ONE (22:04)
[2017-11-01] MEDS ORDERED: HALOPERIDOL LACT 5 MG/ML INJ IVP ONE ×2 (22:05)
[2017-11-01 22:06] LABS: PLATELET COUNT 296 10^3/uL (150-400)
[2017-11-01 23:37] VITALS: BP 133/72
== END 2017-11-01 23:37 | disposition home or self-care (01) ==
DX: R11.2 Nausea with vomiting, unspecified (principal); R74.0 Nonspecific elevation of levels of transaminase and lactic acid dehydrogenase [LDH]
CPT/HCPCS: 96374; J1630; J2060; J2405; J2550